=== PATIENT | male | born 1950 | race Caucasian/White ===

== ENCOUNTER 2020-09-18 16:56 | Outpatient (CLI) | payer OTHER ==
[~2020-09-18 16:56] MED LIST: ATORVASTATIN CA40 MG; AVAPRO150 MG; CATAPRES0.1 MG; ECOTRIN81 MG; HUMALOG100 U/ML; LANTUS SOLOSTAR3 ML; NORVASC2.5 M1; TRICOR145 MG
== END 2020-09-18 17:08 | disposition home or self-care (01) ==
LOC: RAD 16:56
PROVIDERS: ATTEND Orthopaedic Surgery
DX: M20.11 Hallux valgus (acquired), right foot (principal); M25.561 Pain in right knee; M25.571 Pain in right ankle and joints of right foot

== ENCOUNTER 2020-11-01 17:35 | Inpatient (IN) | payer OTHER ==
[~2020-11-01] VITALS: Ht 182.9 cm; Wt 86.2 kg
[2020-11-01] MEDS ORDERED: TOPROL XL25 M1 (18:01)
[2020-11-01] MEDS ORDERED: AMIODARONE HCL100 MG (18:01)
--- NOTE | 2020-11-01 18:02 | NUR ---
SE RECIBE PTE ALERTA Y ORIENTADO X3,REFIERE TENER DOLOR ABDOMINAL TUVO UN EPISODIO DE EMESIS HOY.
--- NOTE | 2020-11-01 19:55 | NUR ---
PT ALERTA Y ORIENTADO X3 ESFERAS SE LE ORIENTA SOBRE TX Y REFIERE ENTEDER. SE CRISTEL MUESTRAS DE JULIO Y VENOPUNCION CON TECNICAS ASEPTICAS. SE ADMINISTRAN MEDICAMENTO ORDENADO. PT [place]OL[place].
--- NOTE | 2020-11-01 23:46 | NUR ---
PTE ALERTA Y ORIENTADO X 3 ESFERAS EN VINCENT CON BARANDAS ELEVADAS,EN COMPANIA DE FAMILIAR,SIN DIFICULTAD RESP Y DOLOR AL MOMENTO CATIA SE ADMINISTRO MEDICAMENTO EN TURNO ANTERIOR.AREA DE VENOPUNCION PATENTE Y JEERMY DE EDEMA CON FLUIDOS DE MANTENIMIENTO,PENDIENTE A EVALUACION DE DR Nany ARORA.
--- NOTE | 2020-11-02 06:41 | NUR ---
SE CRISTEL MUESTRAS DE JULIO BAJO MEDIDAS ASEPTICAS Y SE ENVIAN A LAB.
--- NOTE | 2020-11-02 08:20 | NUR ---
SE RECIBE PTE ALERTA Y ORIETADO POR 3 EN VINCENT CON BARANDAS ELEVADA Y TIMBRE ACCESIBLE PTE NO PRESENTA DOLOR AL MOMENTO PTE SE MANTIENE EN OBSERVACION Y BAJO TRATAMIENTO PTE EN ESPERA DR MAN.
--- NOTE | 2020-11-02 13:30 | NUR ---
PTE REFIERE TENER MUCHO DOLOR ABDOMINAL. SE CONTACTA VIA TELEFONICA A , SE NOTIFICA ESTADO DE PTE; DREW ORDENA ADMINISTRAR MORFINA 4MG IV Q4HR PRN FOR PAIN. SE REALIZA READBACK X2.
== END 2020-11-11 14:28 | disposition home or self-care (01) | DRG 439 ==
LOC: ER 17:35 → SEC-K 11-02 14:56 → MEDI 11-02 14:56
PROVIDERS: ADMIT Internal Medicine; ATTEND Internal Medicine
PROC: BW2110Z Computerized Tomography (CT Scan) of Abdomen and Pelvis using Low Osmolar Contrast, Unenhanced and Enhanced (ICD-10-PCS; 2020-11-01)
PROC: BW40ZZZ Ultrasonography of Abdomen (ICD-10-PCS; 2020-11-02)
PROC: 02HV33Z Insertion of Infusion Device into Superior Vena Cava, Percutaneous Approach (ICD-10-PCS; principal; 2020-11-04)
DX: K85.20 Alcohol induced acute pancreatitis without necrosis or infection (principal); K56.600 Partial intestinal obstruction, unspecified as to cause; N39.0 Urinary tract infection, site not specified; I13.10 Hypertensive heart and chronic kidney disease without heart failure, with stage 1 through stage 4 chronic kidney disease, or unspecified chronic kidney disease; E11.22 Type 2 diabetes mellitus with diabetic chronic kidney disease; E11.65 Type 2 diabetes mellitus with hyperglycemia; N18.9 Chronic kidney disease, unspecified; E78.5 Hyperlipidemia, unspecified; Z95.0 Presence of cardiac pacemaker; F10.20 Alcohol dependence, uncomplicated; I25.10 Atherosclerotic heart disease of native coronary artery without angina pectoris; Z20.822 Contact with and (suspected) exposure to COVID-19

== ENCOUNTER 2020-12-04 05:35 | Day surgery (SDC) | payer OTHER ==
[~2020-12-04 05:35] MED LIST changes: +AMIODARONE HCL100 MG; +TOPROL XL25 M1
== END 2020-12-04 13:30 | disposition home or self-care (01) ==
LOC: AMB-ENDOS 05:35
PROVIDERS: ATTEND Surgery
DX: K63.5 Polyp of colon (principal); Z20.822 Contact with and (suspected) exposure to COVID-19

== ENCOUNTER 2021-01-23 08:23 | Outpatient (CLI) | payer OTHER | END 2021-01-23 08:29 | disposition home or self-care (01) | LOC: TOM 08:23 | PROVIDERS: ATTEND Surgery | DX: N20.0 Calculus of kidney (principal); K44.9 Diaphragmatic hernia without obstruction or gangrene; R10.84 Generalized abdominal pain; K56.600 Partial intestinal obstruction, unspecified as to cause; K85.90 Acute pancreatitis without necrosis or infection, unspecified; Z12.11 Encounter for screening for malignant neoplasm of colon; Z86.010 Personal history of colon polyps ==

== ENCOUNTER → 2021-02-06 12:51 | Outpatient (CLI) | payer OTHER | END | disposition home or self-care (01) | LOC: NUCLEAR 12:51 | PROVIDERS: ATTEND Orthopaedic Surgery | DX: M81.0 Age-related osteoporosis without current pathological fracture (principal) ==

== ENCOUNTER 2021-04-16 15:30 | Outpatient (CLI) | payer OTHER | END 2021-04-16 15:51 | disposition home or self-care (01) | LOC: LAB 15:30 | PROVIDERS: ATTEND Orthopaedic Surgery | DX: E56.1 Deficiency of vitamin K (principal); M85.88 Other specified disorders of bone density and structure, other site; E55.9 Vitamin D deficiency, unspecified ==

== ENCOUNTER 2022-01-19 16:30 | Inpatient (IN) | payer OTHER ==
[~2022-01-19] VITALS: Ht 182.9 cm; Wt 83.9 kg
[2022-01-20] MEDS ORDERED: POTASSIUM CITR15 MEQ (11:54)
[2022-01-20] MEDS ORDERED: EZETIMIBE10 MG (11:54)
[2022-01-20] MEDS ORDERED: TAMSULOSIN HCL0.4 MG (11:55)
[2022-01-20] MEDS ORDERED: IRBESARTAN-HCT1 EACH (11:55)
[2022-01-20] MEDS ORDERED: ALLOPURINOL300 MG (11:55)
[2022-01-23] MEDS ORDERED: INTESTINEX680 M1 PO (19:26)
[2022-01-23] MEDS ORDERED: TAMSULOSIN HCL0.4 MG PO (19:26)
[2022-01-23] MEDS ORDERED: FLUCONAZOLE50 MG PO (19:26)
== END 2022-01-24 06:23 | disposition home or self-care (01) | DRG 439 ==
LOC: ER 16:30 → MEDJ 20:57
PROVIDERS: ADMIT Internal Medicine; ATTEND Internal Medicine
PROC: BW21ZZZ Computerized Tomography (CT Scan) of Abdomen and Pelvis (ICD-10-PCS; principal; 2022-01-19)
DX: K85.20 Alcohol induced acute pancreatitis without necrosis or infection (principal); N17.8 Other acute kidney failure; N39.0 Urinary tract infection, site not specified; E86.0 Dehydration; E87.8 Other disorders of electrolyte and fluid balance, not elsewhere classified; Z79.4 Long term (current) use of insulin; B96.89 Other specified bacterial agents as the cause of diseases classified elsewhere; I12.9 Hypertensive chronic kidney disease with stage 1 through stage 4 chronic kidney disease, or unspecified chronic kidney disease; E11.22 Type 2 diabetes mellitus with diabetic chronic kidney disease; N18.9 Chronic kidney disease, unspecified; Z20.822 Contact with and (suspected) exposure to COVID-19; E11.65 Type 2 diabetes mellitus with hyperglycemia; Z72.89 Other problems related to lifestyle

== ENCOUNTER 2022-05-03 13:57 | Emergency (ER) | payer OTHER ==
[~2022-05-03] VITALS: Ht 182.9 cm; Wt 82.6 kg
[~2022-05-03 13:57] MED LIST changes: +ALLOPURINOL300 MG; +EZETIMIBE10 MG; +FLUCONAZOLE50 MG PO; +INTESTINEX680 M1 PO; +IRBESARTAN-HCT1 EACH; +POTASSIUM CITR15 MEQ; +TAMSULOSIN HCL0.4 MG; +TAMSULOSIN HCL0.4 MG PO
[2022-05-03] MEDS ORDERED: AVALIDE 300-121 EACH PO (14:30)
[2022-05-03] MEDS ORDERED: TOPROL XL50 M1 PO (14:31)
== END 2022-05-03 19:30 | disposition home or self-care (01) ==
LOC: ER 13:57
DX: M10.9 Gout, unspecified (principal)

== ENCOUNTER 2024-02-10 11:35 | Emergency (ER) | payer OTHER ==
[~2024-02-10] VITALS: Ht 177.8 cm; Wt 81.6 kg
[~2024-02-10 11:35] MED LIST changes: +AMLODIPINE-OLM1 EAC2; +AVALIDE 300-121 EACH PO; +TOPROL XL50 M1 PO
[2024-02-10] MEDS ORDERED: KETOROLAC TROMETHAMINE 30 MG VIAL IM STA (12:22)
[2024-02-10] MEDS ORDERED: DEXAMETHASONE SODIUM PHOSPHATE 4 MG/ML VIAL IM STA (12:23)
[2024-02-10] MEDS ORDERED: ORPHENADRINE CITRATE 30 MG/ML AMPUL IM STA (12:23)
[2024-02-10] MEDS ORDERED: ACETAMINOPHEN 500 MG GEL..CAP PO STA (12:23)
[2024-02-10] MEDS ORDERED: ORPHENADRINE CITRATE 30 MG/ML AMPUL ONE (13:25)
[2024-02-10] MEDS ORDERED: ACETAMINOPHEN650 M2 PO (13:54)
[2024-02-10] MEDS ORDERED: TRAM1TAB98 PO (13:54)
== END 2024-02-10 14:54 | disposition home or self-care (01) ==
LOC: ER 11:36
DX: M54.50 Low back pain, unspecified (principal); M54.9 Dorsalgia, unspecified; T14.90XA Injury, unspecified, initial encounter; I10 Essential (primary) hypertension; E11.9 Type 2 diabetes mellitus without complications; Z79.4 Long term (current) use of insulin
CPT/HCPCS: 72100; 72220; 73521; 96372; 99283; J1100; J1885; J2360